=== PATIENT | female | born 1935 | race Asian ===

== ENCOUNTER 2016-11-22 15:43 | Emergency (ER) | END 2016-11-22 20:02 | disposition left against medical advice (07) | DX: Z53.21 Procedure and treatment not carried out due to patient leaving prior to being seen by health care provider (principal) ==

== ENCOUNTER 2018-05-30 09:33 | Emergency (ER) | END 2018-05-30 11:57 | disposition home or self-care (01) ==

== ENCOUNTER 2018-10-28 08:20 | Emergency (ER) | payer MEDICARE, OTHER ==
[~2018-10-28] VITALS: Ht 160 cm; Wt 60.0 kg
[~2018-10-28 08:20] MED LIST: ALEN70TA5 PO; CELE200C PO; CYCL10TA7 PO; DICY10CA40 PO; ESOM40CA PO; GLIP1TAB32 PO; LOSA100T15 PO; NAPR-985 PO
[2018-10-28 08:31] VITALS: Ht 160 cm; Wt 60.0 kg
[2018-10-28] MEDS ORDERED: SODIUM CHLORIDE 0.9% 1L BAG IV* STA (08:37)
[2018-10-28] MEDS ORDERED: ALEN70TA5 PO (09:35)
[2018-10-28] MEDS ORDERED: DICY10CA40 PO (09:36)
[2018-10-28] MEDS ORDERED: LOSA100T15 PO (09:37)
[2018-10-28] MEDS ORDERED: GLIP1TAB6 PO (09:37)
[2018-10-28] MEDS ORDERED: ATOR10TA65 PO (09:37)
[2018-10-28] MEDS ORDERED: LEVO5TAB PO (09:38)
[2018-10-28] MEDS ORDERED: BACL10TA PO (09:38)
[2018-10-28] MEDS ORDERED: OXYB5TAB PO (09:39)
[2018-10-28] MEDS ORDERED: PREG50CA PO (09:40)
[2018-10-28] MEDS ORDERED: MELO15TA30 PO (09:40)
--- NOTE | 2018-10-28 11:00 | ERD ---
ER Documentation Chief Complaint Chief Complaint fever on and off for 3 days feeling weak HPI 83-year-old female presents to the emergency department by paramedics for evaluation of generalized weakness. Patient is Syriac speaking and initially seen with a rcp. However, even with translation service, she seems to have an underlying dementia with a tangential thought process and provides very limited history. Later in the emergency department course, history is available from the daughter. Brief history from the patient and special education assistant was at the patient was being evaluated for generalized weakness. No known focal weakness or numbness. There is a questionable history of a fever. There were no other details regarding cough or shortness of breath, chest pain or abdominal pain or any other specific complaints. I have reviewed the special education assistant pre-hospital care. Pre-hospital vital signs were reviewed. Pre-hospital diagnostic tests were reviewed. Upon arrival later in the emergency department course, the daughter tells me the patient had foot surgery and the patient felt as if the foot surgery was "getting into her bloodstream." She had no other specific complaints. ROS All systems reviewed and are negative except as per history of present illness. Medications Home Meds Reported Medications Pregabalin* (Lyrica*) 50 Mg Capsule, 50 MG PO DAILY, CAP 10/28/18 Meloxicam* (Mobic*) 15 Mg Tablet, 15 MG PO DAILY, #30 TAB 10/28/18 Oxybutynin Chloride (Oxybutynin Chloride ER) 5 Mg Tab.er.24, 5 MG PO, TAB 10/28/18 Levocetirizine Dihydrochloride (LEVOCETIRIZINE DIHYDROCHLORIDE) 5 Mg Tablet, 5 MG PO DAILY, #30 TAB 10/28/18 Baclofen* (Baclofen*) 10 Mg Tablet, 10 MG PO DAILY, TAB 10/28/18 Atorvastatin Calcium (Atorvastatin Calcium) 10 Mg Tablet, 10 MG PO QHS, #30 TAB 10/28/18 Losartan Potassium* (Losartan Potassium*) 100 Mg Tablet, 100 MG PO DAILY, TAB 10/28/18 Glipizide/Metformin HCl (Glipizide-Metformin 5-500 mg) 1 Each Tablet, 1 EACH PO BID, TAB 10/28/18 Dicyclomine HCl (Dicyclomine HCl) 10 Mg Capsule, 10 MG PO TID PRN for DIARRHEA 10/28/18 Alendronate Sodium* (Fosamax*) 70 Mg Tablet, 70 MG PO Q7D, #4 TAB 10/28/18 Discontinued Reported Medications Losartan Potassium* (Losartan Potassium*) 100 Mg Tablet, 100 MG PO BID, TAB 05/10/16 Dicyclomine HCl (Dicyclomine HCl) 10 Mg Capsule, 10 MG PO TID, CAP 05/10/16 Celecoxib* (Celebrex*) 200 Mg Capsule, 200 MG PO DAILY, CAP 05/10/16 Esomeprazole Mag Trihydrate (Nexium) 40 Mg Capsule.dr, 40 MG PO AC BREAKFAST, #30 CAP 05/10/16 Alendronate Sodium* (Fosamax*) 70 Mg Tablet, 70 MG PO Q7D, TAB 11/30/14 Glipizide-Metformin (Glipizide-Metformin) 5-500 Tab, 1 TAB PO BID, TAB 11/30/14 Discontinued Scripts Naproxen* (Naprosyn*) 500 Mg Tablet, 500 MG PO BID PRN for PAIN AND/OR INFLAMMATION, #30 TAB Prov:LUIS ALFREDO COLIN MD 05/10/16 Cyclobenzaprine Hcl* (Cyclobenzaprine Hcl*) 10 Mg Tablet, 10 MG PO TID, #15 TAB Prov:LUIS ALFREDO COLIN MD 05/10/16 Allergies Allergies: Coded Allergies: No Known Drug Allergy (Verified Allergy, Mild, 10/28/18) PMhx/Soc History of Surgery: Yes (knee surgery) Anesthesia Reaction: No Hx Neurological Disorder: No Hx Respiratory Disorders: No Hx Cardiac Disorders: Yes (HTN; diabetes mellitus) Hx Psychiatric Problems: No Hx Miscellaneous Medical Probl: Yes (DM - taking Metformin) Hx Alcohol Use: No Hx Substance Use: No Hx Tobacco Use: No Smoking Status: Never smoker FmHx Noncontributory for chief complaint Physical Exam Vitals Vital Signs Date Temp Pulse Resp B/P (MAP) Pulse Ox O2 O2 Flow FiO2 Time Delivery Rate 10/28/18 65 19 137/60 100 Room Air 10:30 (85) 10/28/18 Nasal 2 08:44 Cannula 10/28/18 98.8 63 18 152/66 98 08:31 (94) Physical Exam GENERAL: Frail, elderly female in no acute distress HEENT: Pupils equal, round, and reactive to light. EOMI. There is no scleral icterus. NECK: C-spine is soft and supple, there is no meningismus. There is no cervical lymphadenopathy. LUNGS: Clear to auscultation bilaterally. There are no rales, wheezes or rhonchi. HEART: Regular rate and rhythm, no murmurs, clicks, rubs or gallops. ABDOMEN: Soft, non-tender, non-distended. There are bowel sounds in all four quadrants. No rebound or guarding. EXTREMITIES: There is no peripheral cyanosis or edema. No focal swelling or erythema. NEURO: The patient moves all four extremities with 5/5 strength. Cranial nerves II - XII are intact. Normal gait. Alert and oriented, underlying dementia appreciated SKIN: There is no apparent rash or petechiae. HEME/LYMPHATIC: There is no evidence of excessive bruising or lymphedema. PSYCHIATRIC: The patient does not appear anxious or depressed. Result Diagram: 10/28/18 0848 10/28/18 0848 Results 24 hrs Laboratory Tests Test 10/28/18 08:48 10/28/18 09:01 10/28/18 09:23 White Blood Count 5.9 10^3/ul Red Blood Count 4.07 10^6/ul Hemoglobin 12.5 g/dl Hematocrit 37.4 % Mean Corpuscular Volume 91.9 fl Mean Corpuscular Hemoglobin 30.7 pg Mean Corpuscular 33.4 g/dl Hemoglobin Concent Red Cell Distribution Width 12.4 % Platelet Count 244 10^3/UL Mean Platelet Volume 9.8 fl Immature Granulocytes % 0.300 % Neutrophils % 73.0 % Lymphocytes % 17.9 % Monocytes % 6.3 % Eosinophils % 2.2 % Basophils % 0.3 % Nucleated Red Blood Cells % 0.0 /100WBC Immature Granulocytes # 0.020 10^3/ul Neutrophils # 4.3 10^3/ul Lymphocytes # 1.1 10^3/ul Monocytes # 0.4 10^3/ul Eosinophils # 0.1 10^3/ul Basophils # 0.0 10^3/ul Nucleated Red Blood Cells # 0.0 10^3/ul Prothrombin Time 13.0 Sec Prothrombin Time Ratio 1.0 INR International 0.97 Normalized Ratio Activated Partial Thromboplast 31.3 Sec Time Sodium Level 140 mmol/L Potassium Level 4.8 mmol/L Chloride Level 106 mmol/L Carbon Dioxide Level 28 mmol/L Anion Gap 6 Blood Urea Nitrogen 18 mg/dl Creatinine 0.91 mg/dl Est Glomerular Filtrat mL/min Rate mL/min Glucose Level 110 mg/dl Calcium Level 9.7 mg/dl Total Bilirubin 0.1 mg/dl Direct Bilirubin 0.00 mg/dl Indirect Bilirubin 0.1 mg/dl Aspartate Amino 26 IU/L Transf (AST/SGOT) Alanine 15 IU/L Aminotransferase (ALT/SGPT) Alkaline Phosphatase 70 IU/L Troponin I < 0.012 ng/ml Total Protein 7.3 g/dl Albumin 4.0 g/dl Globulin 3.30 g/dl Albumin/Globulin Ratio 1.21 POC Venous Lactate 1.2 mmol/L Urine Color YELLOW Urine Clarity SLIGHTLY CLOUDY Urine pH 6.0 Urine Specific [place] 1.021 Urine Ketones NEGATIVE mg/dL Urine Nitrite NEGATIVE mg/dL Urine Bilirubin NEGATIVE mg/dL Urine Urobilinogen NEGATIVE mg/dL Urine Leukocyte Esterase 1+ Tang/ul Urine Microscopic RBC 1 /HPF Urine Microscopic WBC 4 /HPF Urine Squamous Epithelial Cells FEW /HPF Urine Mucus FEW /HPF Urine Hemoglobin NEGATIVE mg/dL Urine Glucose NEGATIVE mg/dL Urine Total Protein NEGATIVE mg/dl Current Medications Medications Dose Sig/Angelina Start Time Status Last (Trade) Ordered Route PRN Stop Time Admin Dose Reason Admin Sodium 1,800 ml BOLUS OVER 2 10/28/18 DC 10/28/18 Chloride HOURS STAT 08:37 09:05 (NS) IV* 10/28/18 08:38 Procedures/MDM Patient was taken to a room, seen and evaluated. Comfort measures were initiated. Diagnostic tests were ordered and reviewed. 3 LEAD RHYTHM STRIP: Normal sinus rhythm without ectopy EK lead EKG reviewed by myself: Normal Sinus Rhythm Normal [place] and intervals No ST elevation, depression, or T wave inversion Impression: Normal EKG RADIOLOGY: Reviewed with the radiologist REEVALUATION: 1100: Patient's daughter arrived at bedside and was reevaluated with the daughter. She appeared to be in her normal stable state of health. Diagnostic tests were reviewed with the daughter and arrangements were made for discharge. MEDICAL DECISION MAKIN-year-old female presents the emergency department for a generalized weakness complaint with a very difficult history. Differential diagnosis and diagnostic workup focused on infection, electrolyte concerns, ischemia. At this time, patient has no evidence of stroke or [place], no evidence of infection or electrolyte concerns. She appears to be at her functio nal baseline and seems to be appropriate for outpatient care. She is being discharged to the supportive management of her daughter. Departure Diagnosis: Primary Impression: Weakness Condition: Stable Patient Instructions: Generalized Weakness Additional Instructions: See your doctor for follow-up as discussed. Take a copy of your test results, if appropriate, to this follow-up visit. See your doctor or return here if your symptoms do not improve as expected. At any time, please return to the emergency department for any change or worsening in her symptoms. RAJANI SANTIAGO Oct 28, 2018 11:00
[2018-10-28 11:12] VITALS: BP 153/1; PULSE 68; RESP 19
== END 2018-10-28 11:13 | disposition home or self-care (01) ==
LOC: E/R 08:20
DX: R53.1 Weakness (principal); E11.9 Type 2 diabetes mellitus without complications; I10 Essential (primary) hypertension; Z79.84 Long term (current) use of oral hypoglycemic drugs
CPT/HCPCS: 36415; 71045; 80053; 81001; 83605; 84484; 85025; 85610; 85730; 87040; 87086; 93005; 99285; J7030

== ENCOUNTER 2018-11-04 10:53 | Emergency (ER) | payer MEDICARE, OTHER ==
[~2018-11-04] VITALS: Ht 157.5 cm; Wt 65.0 kg
[~2018-11-04 10:53] MED LIST changes: +ATOR10TA65 PO; +BACL10TA PO; -CELE200C PO; -CYCL10TA7 PO; -ESOM40CA PO; -GLIP1TAB32 PO; +GLIP1TAB6 PO; +LEVO5TAB PO; +MELO15TA30 PO; -NAPR-985 PO; +OXYB5TAB PO; +PREG50CA PO
[2018-11-04 10:59] VITALS: Ht 157.5 cm; Wt 65.0 kg
[2018-11-04] MEDS ORDERED: SOD CHLORIDE 0.9% 1,000 ML IV STA (12:07)
[2018-11-04] MEDS ORDERED: ONDANSETRON 4 MG INJ IV STA (12:07)
[2018-11-04] MEDS ORDERED: morphine 2 MG INJ IV STA (12:07)
--- NOTE | 2018-11-04 12:23 | ERD ---
ER Documentation Chief Complaint Chief Complaint BIB RA FOR EVAL OF GENERALIZED BODYACHE 1 WEEK HPI This is an 83-year-old Turkmen speaking female with a history of non-insulin diabetes mellitus. The patient was brought into the emergency department by her caregiver for generalized weakness and body aches for 1 week. She has had a nonproductive cough. She had no fevers or shaking or chills. She had a decrease in appetite. She complains of a bandlike headache. She has no neck pain. Her caregiver states with a Turkmen sleeve maker that this is not the worst headache of her life. She denies any abdominal pain. She has no chest pain. She has no shortness of breath at rest or exertion. She had no recent hospitalizations. ROS All systems reviewed and are negative except as per history of present illness. Medications Home Meds Reported Medications Pregabalin* (Lyrica*) 50 Mg Capsule, 50 MG PO DAILY, CAP 10/28/18 Meloxicam* (Mobic*) 15 Mg Tablet, 15 MG PO DAILY, #30 TAB 10/28/18 Oxybutynin Chloride (Oxybutynin Chloride ER) 5 Mg Tab.er.24, 5 MG PO, TAB 10/28/18 Levocetirizine Dihydrochloride (LEVOCETIRIZINE DIHYDROCHLORIDE) 5 Mg Tablet, 5 MG PO DAILY, #30 TAB 10/28/18 Baclofen* (Baclofen*) 10 Mg Tablet, 10 MG PO DAILY, TAB 10/28/18 Atorvastatin Calcium (Atorvastatin Calcium) 10 Mg Tablet, 10 MG PO QHS, #30 TAB 10/28/18 Losartan Potassium* (Losartan Potassium*) 100 Mg Tablet, 100 MG PO DAILY, TAB 10/28/18 Glipizide/Metformin HCl (Glipizide-Metformin 5-500 mg) 1 Each Tablet, 1 EACH PO BID, TAB 10/28/18 Dicyclomine HCl (Dicyclomine HCl) 10 Mg Capsule, 10 MG PO TID PRN for DIARRHEA 10/28/18 Alendronate Sodium* (Fosamax*) 70 Mg Tablet, 70 MG PO Q7D, #4 TAB 10/28/18 Discontinued Reported Medications Losartan Potassium* (Losartan Potassium*) 100 Mg Tablet, 100 MG PO BID, TAB 05/10/16 Dicyclomine HCl (Dicyclomine HCl) 10 Mg Capsule, 10 MG PO TID, CAP 05/10/16 Celecoxib* (Celebrex*) 200 Mg Capsule, 200 MG PO DAILY, CAP 05/10/16 Esomeprazole Mag Trihydrate (Nexium) 40 Mg Capsule.dr, 40 MG PO AC BREAKFAST, #30 CAP 05/10/16 Alendronate Sodium* (Fosamax*) 70 Mg Tablet, 70 MG PO Q7D, TAB 11/30/14 Glipizide-Metformin (Glipizide-Metformin) 5-500 Tab, 1 TAB PO BID, TAB 11/30/14 Discontinued Scripts Naproxen* (Naprosyn*) 500 Mg Tablet, 500 MG PO BID PRN for PAIN AND/OR INFLAMMATION, #30 TAB Prov:LUIS ALFREDO COLIN MD 05/10/16 Cyclobenzaprine Hcl* (Cyclobenzaprine Hcl*) 10 Mg Tablet, 10 MG PO TID, #15 TAB Prov:LUIS ALFREDO COLIN MD 05/10/16 Allergies Allergies: Coded Allergies: No Known Drug Allergy (Verified Allergy, Mild, 10/28/18) PMhx/Soc History of Surgery: Yes (knee surgery) Anesthesia Reaction: No Hx Neurological Disorder: No Hx Respiratory Disorders: No Hx Cardiac Disorders: Yes (HTN , HIGH CHOLESTEROL ) Hx Psychiatric Problems: No Hx Miscellaneous Medical Probl: Yes (DM ) Hx Alcohol Use: No Hx Substance Use: No Hx Tobacco Use: No Smoking Status: Never smoker Physical Exam Vitals Vital Signs Date Temp Pulse Resp B/P (MAP) Pulse Ox O2 O2 Flow FiO2 Time Delivery Rate 11/04/18 98.1 60 18 156/80 98 Room Air 14:24 (105) 11/04/18 62 18 142/72 98 Room Air 12:00 (95) 11/04/18 98.3 65 18 163/79 96 10:59 (107) Physical Exam Constitutional:Well-developed. Well-nourished. HEENT:Normocephalic. Atraumatic.Pupils were equal round reactive to light. Dry mucous membranes.No tonsillar exudates. Neck: No nuchal rigidity. No lymphadenopathy. No posterior cervical spine tenderness or step-offs. Respiratory: Not using accessory muscles of respiration.Lungs were clear to auscultation bilaterally. No rhonchi. No rales. No wheezing. Cardiovascular: Regular rate regular rhythm.No murmurs. No rubs were appreciated.S1, S2 normal. Distal pulses are palpable 2+ bilaterally. GI: Abdomen was soft. Nontender. Non Distended. No pulsatile abdominal masses or bruits. No rebound. No guarding. Bowel sounds were present and normal. Muscle skeletal: Full range of motion of both the upper and lower extremities bilaterally.Normal muscle tone.No assymetrical calf tenderness or swelling. Skin: No petechia, no purpura. No lesions on the palms or the soles of the feet. No maculopapular rash. NEURO: Patient was alert, awake, orientated x to person place but not to time.No facial droop. Gait observed and normal with no ataxia.Speech had regular rate and rhythm. No focal neurological deficits. Result Diagram: 11/04/18 1156 11/04/18 1156 Results 24 hrs Laboratory Tests Test 11/04/18 11:20 11/04/18 11:56 11/04/18 12:23 Urine Color STRAW Urine Clarity CLEAR Urine pH 7.0 Urine Specific [place] 1.005 Urine Ketones NEGATIVE mg/dL Urine Nitrite NEGATIVE mg/dL Urine Bilirubin NEGATIVE mg/dL Urine Urobilinogen NEGATIVE mg/dL Urine Leukocyte Esterase NEGATIVE Tang/ul Urine Hemoglobin NEGATIVE mg/dL Urine Glucose NEGATIVE mg/dL Urine Total Protein NEGATIVE mg/dl White Blood Count 6.8 10^3/ul Red Blood Count 4.23 10^6/ul Hemoglobin 12.7 g/dl Hematocrit 38.6 % Mean Corpuscular Volume 91.3 fl Mean Corpuscular Hemoglobin 30.0 pg Mean Corpuscular 32.9 g/dl Hemoglobin Concent Red Cell Distribution Width 12.5 % Platelet Count 327 10^3/UL Mean Platelet Volume 10.1 fl Immature Granulocytes % 0.300 % Neutrophils % 67.4 % Lymphocytes % 23.4 % Monocytes % 5.8 % Eosinophils % 2.5 % Basophils % 0.6 % Nucleated Red Blood Cells % 0.0 /100WBC Immature Granulocytes # 0.020 10^3/ul Neutrophils # 4.6 10^3/ul Lymphocytes # 1.6 10^3/ul Monocytes # 0.4 10^3/ul Eosinophils # 0.2 10^3/ul Basophils # 0.0 10^3/ul Nucleated Red Blood Cells # 0.0 10^3/ul Prothrombin Time 11.9 Sec Prothrombin Time Ratio 0.9 INR International 0.87 Normalized Ratio Activated Partial Thromboplast 31.9 Sec Time Sodium Level 140 mmol/L Potassium Level 4.4 mmol/L Chloride Level 102 mmol/L Carbon Dioxide Level 27 mmol/L Anion Gap 11 Blood Urea Nitrogen 19 mg/dl Creatinine 0.90 mg/dl Est Glomerular Filtrat mL/min Rate mL/min Glucose Level 71 mg/dl Calcium Level 9.7 mg/dl Total Bilirubin 0.0 mg/dl Direct Bilirubin 0.00 mg/dl Indirect Bilirubin 0.0 mg/dl Aspartate Amino Transf (AST/SGOT) 28 IU/L Alanine 20 IU/L Aminotransferase (ALT/SGPT) Alkaline Phosphatase 99 IU/L Troponin I < 0.012 ng/ml Total Protein 8.2 g/dl Albumin 4.4 g/dl Globulin 3.80 g/dl Albumin/Globulin Ratio 1.15 Amylase Level 71 U/L Lipase 52 U/L POC Venous Lactate 1.2 mmol/L Current Medications Medications Dose Sig/Angelina Start Time Status Last (Trade) Ordered Route PRN Stop Time Admin Dose Reason Admin Sodium 1,000 ml @ Q1H STAT 11/04/18 DC 11/04/18 Chloride 1,000 mls/hr IV 12:11/04/18 12:42 13:06 Morphine 2 mg ONCE STAT 11/04/18 DC 11/04/18 Sulfate IV 12:11/04/18 12:42 (morphine) 12:09 Ondansetron 4 mg ONCE STAT 11/04/18 DC 11/04/18 HCl (Zofran IV 12:11/04/18 12:41 Inj) 12:09 Procedures/MDM This is an 83-year-old female who presented to the emergency department with generalized weakness. The patient showed signs of mild clinical dehydration was given a liter bolus of normal saline. However the patient had no signs of sepsis. There is no leukocytosis. The patient did not have a urinary tract infection. There is no severe electrolyte abnormalities. Chest radiograph showed no infiltrates pneumothorax. 12 Lead EKG tracing ordered and reviewed by myself showed: Sinus bradycardia 59 bpm and no arrhythmia. VA interval normal. QRS duration normal. No ST segment elevation No ST segment depression. No changes consistent with acute ischemia. As obtain a CT scan of the patient's head given that she had a bandlike headache. This was reviewed by myself the radiologist there is no intracerebral hemorrhage mass-effect or midline shift. I did feel this is more likely result of a tension headache The patient had a caregiver who is with her. She was given the results of all the ancillary laboratory work and radiographic imaging. The patient did not show any neurological deficits to suggest a strokelike symptom. I did feel safe with the patient being discharged home and they will follow-up with their [facility]. She was discharged home with her caregiver. The patient was discharged home in fair condition. They were instructed to return to the emergency department at any time if there was any worsening of their condition. The patient stated they would follow up with their PCP in the next 24-48 hours to initiate a suitable medication regimen under the care of their PCP as well as to allow their PCP to monitor any drug reactions. The patient was discharged home with prescriptions after they gave informed consent to the new medication. They were also fully informed by myself on the adverse effects and adverse drug interactions in order to provide adequate safeguards to prevent possible adverse reactions to medications. Departure Diagnosis: Primary Impression: Headache Headache type: tension-type Headache chronicity pattern: unspecified pattern Intractability: not intractable Qualified Codes: G44.209 - Tension-type headache, unspecified, not intractable Additional Impression: Generalized weakness Condition: Fair LUIS ALFREDO COLIN MD Nov 04, 2018 12:22
[2018-11-04 14:24] VITALS: BP 156/80; PULSE 60; RESP 18
== END 2018-11-04 14:31 | disposition home or self-care (01) ==
LOC: E/R 10:53
DX: G44.209 Tension-type headache, unspecified, not intractable (principal); R53.1 Weakness; I10 Essential (primary) hypertension; E11.9 Type 2 diabetes mellitus without complications; Z79.84 Long term (current) use of oral hypoglycemic drugs
CPT/HCPCS: 36415; 70450; 71045; 80053; 81003; 82150; 83605; 83690; 84484; 85025; 85610; 85730; 87086; 87400; 93005; 96361; 96374; 96375; 99285; J2270; J2405; J7030

== ENCOUNTER 2019-01-08 12:58 | Emergency (ER) | payer MEDICARE, OTHER ==
[~2019-01-08] VITALS: Ht 157.5 cm; Wt 60.0 kg
[2019-01-08] MEDS ORDERED: HYDROmorphONE 2 MG/ML SYG IV STA (13:04)
[2019-01-08] MEDS ORDERED: SOD CHLORIDE 0.9% 1,000 ML IV STA (13:04)
[2019-01-08] MEDS ORDERED: ONDANSETRON 4 MG INJ IV STA (13:04)
[2019-01-08 13:12] VITALS: Ht 157.5 cm; Wt 60.0 kg
[2019-01-08] MEDS ORDERED: SOD CHLORIDE 0.9% 100 ML ONE (14:11)
[2019-01-08] MEDS ORDERED: IOHEXOL 100 ML ONE (14:11)
[2019-01-08] MEDS ORDERED: DICL100G37 TOP (14:22)
[2019-01-08] MEDS ORDERED: OMEP40CA6 PO (14:23)
[2019-01-08] MEDS ORDERED: LYR75 PO (14:23)
[2019-01-08] MEDS ORDERED: NICARDipine HCL 30 MG CAPSULE PO ONE (17:00)
[2019-01-08 17:15] VITALS: BP 165/67; PULSE 58; RESP 16
[2019-01-08] MEDS ORDERED: ONDANSETRON (ODT) 4 MG TAB ODT STA (18:16)
[2019-01-08] MEDS ORDERED: ONDA4TAB14 PO (18:18)
--- NOTE | 2019-01-09 06:20 | ERD ---
ER Documentation Chief Complaint Chief Complaint BIB RA FOR EVAL OF [place] HPI This is an 83-year-old female with a past medical history of hypertension and iru-yumigze-ogalleddb diabetes mellitus. The patient also has a history of migr aines. Patient lives alone and is able to attend her activities of daily living. The patient presented to the emergency department with a headache. It is a unilateral pulsating headache. The patient indicates that the headache has been present for roughly 2 hours. She is felt nauseous 3 episodes of nonbloody nonbilious emesis. She denies any abdominal pain. She has no chest pain. She has no shortness of breath at rest or exertion. She states she has had a history of migraines for roughly 10 years. This headache is similar nature to previous migraines and she states this is not the worst headache of her life. She denies any neck pain. She denies any photophobia. She has no phonophobia. ROS All systems reviewed and are negative except as per history of present illness. Medications Home Meds Active Scripts Ondansetron (Ondansetron Odt) 4 Mg Tab.rapdis, 4 MG PO Q6H PRN for NAUSEA AND/OR VOMITING, #10 TAB Prov:GUSTABO KWOK MD 01/08/19 Reported Medications Omeprazole* (Omeprazole*) 40 Mg Capsule.dr, 40 MG PO DAILY, #30 CAP 01/08/19 Pregabalin* (Lyrica*) 75 Mg Capsule, 75 MG PO BID, CAP 01/08/19 Diclofenac Sodium* (Voltaren* Gel) 1% -100 Gm Gel, 2 GM TOP QID PRN for PAIN, #1 TUB APPLY TO AFFECTED AREA 01/08/19 Pregabalin* (Lyrica*) 50 Mg Capsule, 50 MG PO DAILY, CAP 10/28/18 Meloxicam* (Mobic*) 15 Mg Tablet, 15 MG PO DAILY, #30 TAB 10/28/18 Oxybutynin Chloride (Oxybutynin Chloride ER) 5 Mg Tab.er.24, 5 MG PO, TAB 10/28/18 Levocetirizine Dihydrochloride (LEVOCETIRIZINE DIHYDROCHLORIDE) 5 Mg Tablet, 5 MG PO DAILY, #30 TAB 10/28/18 Baclofen* (Baclofen*) 10 Mg Tablet, 10 MG PO DAILY, TAB 10/28/18 Atorvastatin Calcium (Atorvastatin Calcium) 10 Mg Tablet, 10 MG PO QHS, #30 TAB 10/28/18 Losartan Potassium* (Losartan Potassium*) 100 Mg Tablet, 100 MG PO DAILY, TAB 10/28/18 Glipizide/Metformin HCl (Glipizide-Metformin 5-500 mg) 1 Each Tablet, 1 EACH PO BID, TAB 10/28/18 Alendronate Sodium* (Fosamax*) 70 Mg Tablet, 70 MG PO Q7D, #4 TAB 10/28/18 Discontinued Reported Medications Dicyclomine HCl (Dicyclomine HCl) 10 Mg Capsule, 10 MG PO TID PRN for DIARRHEA 10/28/18 Allergies Allergies: Coded Allergies: No Known Drug Allergy (Verified Allergy, Mild, 01/08/19) PMhx/Soc History of Surgery: Yes (knee surgery) Anesthesia Reaction: No Hx Neurological Disorder: No Hx Respiratory Disorders: No Hx Cardiac Disorders: Yes (HTN , HIGH CHOLESTEROL ) Hx Psychiatric Problems: No Hx Miscellaneous Medical Probl: Yes (DM ) Hx Alcohol Use: No Hx Substance Use: No Hx Tobacco Use: No Smoking Status: Never smoker Physical Exam Vitals Vital Signs Date Temp Pulse Resp B/P (MAP) Pulse Ox O2 O2 Flow FiO2 Time Delivery Rate 01/08/19 97.2 58 16 165/67 100 Room Air 17:15 (99) 01/08/19 97.2 62 16 181/69 100 Room Air 15:00 (106) 01/08/19 96.7 78 16 180/70 99 13:12 (106) Physical Exam Constitutional:Well-developed. Well-nourished. Patient sitting upright in stretcher with her eyes closed. HEENT:Normocephalic. Atraumatic.Pupils were equal round reactive to light. Moist mucous membranes.No tonsillar exudates. Funduscopy exam shows sharp optic disks and venous pulsations are present. Neck: No nuchal rigidity. No lymphadenopathy. No posterior cervical spine tenderness or step-offs. Respiratory: Not using accessory muscles of respiration.Lungs were clear to auscultation bilaterally. No rhonchi. No rales. No wheezing. Cardiovascular: Regular rate regular rhythm.No murmurs. No rubs were appreciated.S1, S2 normal. Distal pulses are palpable 2+ bilaterally. GI: Abdomen was soft. Nontender. Non Distended. No pulsatile abdominal masses or bruits. No rebound. No guarding. Bowel sounds were present and normal. Muscle skeletal: Full range of motion of both the upper and lower extremities bilaterally.Normal muscle tone.No assymetrical calf tenderness or swelling. Skin: No petechia, no purpura. No lesions on the palms or the soles of the feet. No maculopapular rash. NEURO: Patient was alert, awake, orientated x3.No facial droop. Gait observed and normal with no ataxia.Speech had regular rate and rhythm. No focal neurological deficits. Result Diagram: 01/08/19 1326 01/08/19 1326 Results 24 hrs Laboratory Tests Test 01/08/19 13:26 White Blood Count 5.2 10^3/ul Red Blood Count 4.11 10^6/ul Hemoglobin 12.3 g/dl Hematocrit 37.6 % Mean Corpuscular Volume 91.5 fl Mean Corpuscular Hemoglobin 29.9 pg Mean Corpuscular Hemoglobin Concent 32.7 g/dl Red Cell Distribution Width 13.4 % Platelet Count 265 10^3/UL Mean Platelet Volume 9.7 fl Immature Granulocytes % 0.200 % Neutrophils % 73.9 % Lymphocytes % 19.8 % Monocytes % 4.2 % Eosinophils % 1.3 % Basophils % 0.6 % Nucleated Red Blood Cells % 0.0 /100WBC Immature Granulocytes # 0.010 10^3/ul Neutrophils # 3.8 10^3/ul Lymphocytes # 1.0 10^3/ul Monocytes # 0.2 10^3/ul Eosinophils # 0.1 10^3/ul Basophils # 0.0 10^3/ul Nucleated Red Blood Cells # 0.0 10^3/ul Prothrombin Time 12.7 Sec Prothrombin Time Ratio 1.0 INR International Normalized Ratio 0.94 Activated Partial Thromboplast Time 31.1 Sec Sodium Level 141 mmol/L Potassium Level 4.3 mmol/L Chloride Level 108 mmol/L Carbon Dioxide Level 22 mmol/L Anion Gap 11 Blood Urea Nitrogen 15 mg/dl Creatinine 0.70 mg/dl Est Glomerular Filtrat Rate mL/min mL/min Glucose Level 126 mg/dl Calcium Level 9.1 mg/dl Total Bilirubin 0.3 mg/dl Direct Bilirubin 0.00 mg/dl Indirect Bilirubin 0.3 mg/dl Aspartate Amino Transf (AST/SGOT) 23 IU/L Alanine Aminotransferase (ALT/SGPT) 19 IU/L Alkaline Phosphatase 92 IU/L Total Protein 7.6 g/dl Albumin 4.0 g/dl Globulin 3.60 g/dl Albumin/Globulin Ratio 1.11 Current Medications Medications Dose Sig/Angelina Start Time Status Last (Trade) Ordered Route PRN Stop Time Admin Dose Reason Admin Sodium 1,000 ml @ Q1H STAT 01/08/19 DC 01/08/19 Chloride 1,000 mls/hr IV 13:04 01/08/19 13:40 14:03 Ondansetron 4 mg ONCE STAT 01/08/19 DC 01/08/19 HCl (Zofran IV 13:04 01/08/19 13:40 Inj) 13:09 1 mg ONCE STAT 01/08/19 DC 01/08/19 Hydromorphone IV 13:04 01/08/19 13:40 HCl 13:09 (Dilaudid) IV Flush 10 ml STK-MED 01/08/19 DC 01/08/19 (NS 10 ml) ONCE .ROUTE 14:11 01/08/19 14:51 14:12 Sodium 100 ml @ ud STK-MED 01/08/19 DC 01/08/19 Chloride ONCE .ROUTE 14:01/08/19 14:51 14:12 Iohexol 100 ml @ ud STK-MED 01/08/19 DC 01/08/19 ONCE .ROUTE 14:11 01/08/19 14:51 14:12 Clonidine 0.1 mg ONCE ONCE 01/08/19 DC 01/08/19 (Catapres) PO 15:30 01/08/19 15:24 15:31 Nicardipine 30 mg ONCE ONCE 01/08/19 DC 01/08/19 HCl PO 17:00 01/08/19 16:55 (Cardene) 17:01 Ondansetron 4 mg ONCE STAT 01/08/19 DC HCl (Zofran ODT 18:16 01/08/19 Odt) 18:19 Procedures/MDM The patient presented to the emergency department with an acute single headache that presented within hours of onset my differential diagnosis included but was not limited to meningitis, SAH, intracerebral hemorrhage, hypertensive encephalopathy, cranial artery dissection, cerebral venous sinus thrombosis, traumatic, acute sinusitis. The patient has no ocular symptoms to suggest temporal neuritis, acute narrow-angle glaucoma or pituitary apoplexy. The patient did not appear to have a toxic or metabolic etiology such as fever, hypoglycemia, high-altitude disease or carbon monoxide poisoning. This was not the patients worse headache of their life. The patient had a complete neurologic and fundoscopic exam performed by myself that was normal with no focal neurological deficits or retinal hemorrhage. The patient stated this headache was not severe or distinct from other headaches and the history with the physical exam findings did not likely suggest SAH. Therefore, I did not feel it was clinically necessary to perform a lumbar puncture and CSF analysis. I did obtain a CT scan the patient said there is no intracerebral hemorrhage mass-effect or midline shift. I obtained a 12-lead EKG tracing there is no evidence of atypical myocardial infarction. 12 Lead EKG tracing ordered and reviewed by myself showed: Sinus bradycardia 57 bpm and no arrhythmia. [place] interval normal. QRS duration normal. No ST segment elevation No ST segment depression. No changes consistent with acute ischemia. Observation Note: Time: 4 hours Family Hx: No Hypertension Evaluation: Multiple exams showed improving symptoms and no evidence of worsening of her symptoms. Her daughter was at bedside. The patient still continued to have a headache despite receiving analgesic medication. The pat ient was hypertensive. In order to rule out endorgan damage I did feel is necessary to obtain a CTA of the patient's head. There is no subarachnoid hemorrhage. No vascular malformation. The patient received clonidine with improvement of her blood pressure. The patient was discharged home in fair condition. They were instructed to return to the emergency department at any time if there was any worsening of their condition. The patient stated they would follow up with their PCP in the next 24-48 hours to initiate a suitable medication regimen under the care of their PCP as well as to allow their PCP to monitor any drug reactions. The patient was discharged home with prescriptions after they gave informed consent to the new medication. They were also fully informed by myself on the adverse effects and adverse drug interactions in order to provide adequate safeguards to prevent possible adverse reactions to medications. Departure Diagnosis: Primary Impression: Nausea and vomiting Vomiting type: unspecified Vomiting Intractability: non-intractable Qualified Codes: R11.2 - Nausea with vomiting, unspecified Additional Impression: Migraine Migraine type: without aura Status migrainosus presence: without status migrainosus Intractability: not intractable Qualified Codes: G43.009 - Migraine without aura, not intractable, without status migrainosus Condition: Fair Patient Instructions: High Blood Pressure (Hypertension), Headache, Migraine (Classical) Referrals: MARIETTA ETIENNE MD (PCP) LUIS ALFREDO COLIN MD January 09, 2019 06:16
== END 2019-01-08 17:15 | disposition home or self-care (01) ==
LOC: E/R 12:58
DX: G43.909 Migraine, unspecified, not intractable, without status migrainosus (principal); I10 Essential (primary) hypertension; E11.9 Type 2 diabetes mellitus without complications; Z79.84 Long term (current) use of oral hypoglycemic drugs
CPT/HCPCS: 70450; 70496; 80053; 85025; 85610; 85730; 93005; 96374; 96375; 99285; J1170; J2405; J7030; Q9967

== ENCOUNTER 2019-03-15 17:03 | Emergency (ER) | payer MEDICARE, OTHER ==
[~2019-03-15] VITALS: Ht 160 cm; Wt 59.1 kg
[~2019-03-15 17:03] MED LIST changes: +DICL100G37 TOP; -DICY10CA40 PO; +LYR75 PO; +OMEP40CA6 PO; +ONDA4TAB14 PO
[2019-03-15 17:10] VITALS: Ht 160 cm; Wt 59.1 kg
[2019-03-15] MEDS ORDERED: SOD CHLORIDE 0.9% 1,000 ML IV STA (17:20)
[2019-03-15] MEDS ORDERED: ONDANSETRON 4 MG INJ IV STA (19:08)
[2019-03-15] MEDS ORDERED: morphine 2 MG INJ IV STA (19:08)
--- NOTE | 2019-03-15 19:16 | ERD ---
ER Documentation Chief Complaint Chief Complaint R39 generalize body pain & weakness italian speaking HPI This is an 83-year-old female with a past medical history of hypertension and xbi-sjcnzta-pmanifdta diabetes mellitus. The patient also has a history of migraines. Patient lives alone and is able to attend her activities of daily living. The patient presented to the emergency department by EMS after her granddaughter indicated that she had been complaining of generalized body pains and weakness for the past several days. The patient is Vietnamese speaking and with a canvas cutter machine indicate the most of her pain was in the left lower quadrant. The pain did not radiate to the back. She stated the pain was 6 out of 10 in inten sity. She had mild frequency with no urgency or dysuria. She denied any gross hematuria. She states she is experience nausea and had one episode of nonbloody nonbilious emesis. She denies any diarrhea or constipation. No fevers no shaking no chills ROS All systems reviewed and are negative except as per history of present illness. Medications Home Meds Reported Medications Omeprazole* (Omeprazole*) 40 Mg Capsule.dr, 40 MG PO DAILY, #30 CAP 01/08/19 Pregabalin* (Lyrica*) 75 Mg Capsule, 75 MG PO BID, CAP 01/08/19 Diclofenac Sodium* (Voltaren* Gel) 1% -100 Gm Gel, 2 GM TOP QID PRN for PAIN, #1 TUB APPLY TO AFFECTED AREA 01/08/19 Meloxicam* (Mobic*) 15 Mg Tablet, 15 MG PO DAILY, #30 TAB 10/28/18 Oxybutynin Chloride (Oxybutynin Chloride ER) 5 Mg Tab.er.24, 5 MG PO, TAB 10/28/18 Levocetirizine Dihydrochloride (LEVOCETIRIZINE DIHYDROCHLORIDE) 5 Mg Tablet, 5 MG PO DAILY, #30 TAB 10/28/18 Baclofen* (Baclofen*) 10 Mg Tablet, 10 MG PO DAILY, TAB 10/28/18 Atorvastatin Calcium (Atorvastatin Calcium) 10 Mg Tablet, 10 MG PO QHS, #30 TAB 10/28/18 Losartan Potassium* (Losartan Potassium*) 100 Mg Tablet, 100 MG PO DAILY, TAB 10/28/18 Glipizide/Metformin HCl (Glipizide-Metformin 5-500 mg) 1 Each Tablet, 1 EACH PO BID, TAB 10/28/18 Alendronate Sodium* (Fosamax*) 70 Mg Tablet, 70 MG PO Q7D, #4 TAB 10/28/18 Discontinued Reported Medications Pregabalin* (Lyrica*) 50 Mg Capsule, 50 MG PO DAILY, CAP 10/28/18 Discontinued Scripts Ondansetron (Ondansetron Odt) 4 Mg Tab.rapdis, 4 MG PO Q6H PRN for NAUSEA AND/OR VOMITING, #10 TAB Prov:GUSTABO KWOK MD 01/08/19 Allergies Allergies: Coded Allergies: No Known Drug Allergy (Verified Allergy, Mild, 03/15/19) PMhx/Soc History of Surgery: Yes (knee surgery) Anesthesia Reaction: No Hx Neurological Disorder: No Hx Respiratory Disorders: No Hx Cardiac Disorders: Yes (HTN , HIGH CHOLESTEROL ) Hx Psychiatric Problems: No Hx Miscellaneous Medical Probl: Yes (DM ) Hx Alcohol Use: No Hx Substance Use: No Hx Tobacco Use: No Smoking Status: Never smoker Physical Exam Vitals Vital Signs Date Temp Pulse Resp B/P (MAP) Pulse Ox O2 O2 Flow FiO2 Time Delivery Rate 03/15/19 97.6 63 18 171/73 100 17:10 (105) Physical Exam Constitutional:Well-developed. Well-nourished. HEENT:Normocephalic. Atraumatic.Pupils were equal round reactive to light. Moist mucous membranes.No tonsillar exudates. Neck: No nuchal rigidity. No lymphadenopathy. No posterior cervical spine tenderness or step-offs. Respiratory: Not using accessory muscles of respiration.Lungs were clear to auscultation bilaterally. No rhonchi. No rales. No wheezing. Cardiovascular: Regular rate regular rhythm.No murmurs. No rubs were appreciated.S1, S2 normal. Distal pulses are palpable 2+ bilaterally. GI: Abdomen was soft. Suprapubic tenderness and tenderness in the left lower quadrant. No pulsatile abdominal masses or bruits. No rebound. No guarding. Bowel sounds were present and normal. Muscle skeletal: Full range of motion of both the upper and lower extremities bilaterally.Normal muscle tone.No assymetrical calf tenderness or swelling. Skin: No petechia, no purpura. No lesions on the palms or the soles of the feet. No maculopapular rash. NEURO: Patient was alert, awake, orientated x3.No facial droop. Gait observed and normal with no ataxia.Speech had regular rate and rhythm. No focal neurological deficits. Result Diagram: 03/15/19 1722 03/15/19 1722 Results 24 hrs Laboratory Tests Test 03/15/19 17:22 White Blood Count 7.3 10^3/ul Red Blood Count 4.26 10^6/ul Hemoglobin 12.7 g/dl Hematocrit 37.7 % Mean Corpuscular Volume 88.5 fl Mean Corpuscular Hemoglobin 29.8 pg Mean Corpuscular Hemoglobin Concent 33.7 g/dl Red Cell Distribution Width 13.3 % Platelet Count 265 10^3/UL Mean Platelet Volume 9.3 fl Immature Granulocytes % 0.100 % Neutrophils % 72.6 % Lymphocytes % 19.4 % Monocytes % 5.6 % Eosinophils % 1.9 % Basophils % 0.4 % Nucleated Red Blood Cells % 0.0 /100WBC Immature Granulocytes # 0.010 10^3/ul Neutrophils # 5.3 10^3/ul Lymphocytes # 1.4 10^3/ul Monocytes # 0.4 10^3/ul Eosinophils # 0.1 10^3/ul Basophils # 0.0 10^3/ul Nucleated Red Blood Cells # 0.0 10^3/ul Prothrombin Time 11.9 Sec Prothrombin Time Ratio 0.9 INR International Normalized Ratio 0.87 Activated Partial Thromboplast Time 30.7 Sec Sodium Level 138 mmol/L Potassium Level 5.0 mmol/L Chloride Level 104 mmol/L Carbon Dioxide Level 26 mmol/L Anion Gap 8 Blood Urea Nitrogen 32 mg/dl Creatinine 0.84 mg/dl Est Glomerular Filtrat Rate mL/min mL/min Glucose Level 125 mg/dl Calcium Level 9.4 mg/dl Total Bilirubin 0.2 mg/dl Direct Bilirubin 0.00 mg/dl Indirect Bilirubin 0.2 mg/dl Aspartate Amino Transf (AST/SGOT) 27 IU/L Alanine Aminotransferase (ALT/SGPT) 21 IU/L Alkaline Phosphatase 61 IU/L Troponin I < 0.012 ng/ml Total Protein 7.5 g/dl Albumin 4.0 g/dl Globulin 3.50 g/dl Albumin/Globulin Ratio 1.14 Amylase Level 86 U/L Lipase 59 U/L Current Medications Medications Dose Sig/Angelina Start Time Status Last (Trade) Ordered Route PRN Stop Time Admin Dose Reason Admin Sodium 1,000 ml @ Q1H STAT 03/15/19 DC 03/15/19 Chloride 1,000 mls/hr IV 17:20 17:28 03/15/19 18:19 Morphine 2 mg ONCE STAT 03/15/19 UNV Sulfate IV 19:08 (morphine) 03/15/19 19:09 Ondansetron 4 mg ONCE STAT 03/15/19 UNV HCl (Zofran IV 19:08 Inj) 03/15/19 19:09 Procedures/MDM This patient presented to the emergency department with abdominal pain and was seen and evaluated by myself. My differential diagnosis included but was not limited to abdominal aortic aneurysm, appendicitis, pancreatitis, perforated peptic ulcer, perforated viscus, Boerhaaves syndrome or visceral pain such as diverticulitis, DKA, esophagitis, hepatitis or bowel obstruction. The patient was placed on a youth nutritional monitor, continuous pulse oximetry, and IV access was established by nursing staff. Patient received intravenous morphine and Zofran. The patient had no leukocytosis. There is no severe electrolyte abnormalities I obtained a 12-lead EKG tracing to rule out for atypical myocardial fraction. 12 Lead EKG tracing ordered and reviewed by myself showed: Sinus bradycardia 56 bpm and no arrhythmia. [place] interval normal. QRS duration normal. No ST segment elevation No ST segment depression. No changes consistent with acute ischemia. There is no evidence of urinary tract infection. I obtained a CT scan of the abdomen and there is no evidence of a mass or div erticulitis. Indicates the patient I did not have an exact etiology into her symptoms but I did feel that she was safe to be discharged home. The patient is able to take care of herself and attend her activities of daily living. Therefore she felt comfortable being discharged home. She was given antiemetics. The patient was discharged home in fair condition. They were instructed to return to the emergency department at any time if there was any worsening of their condition. The patient stated they would follow up with their PCP in the next 24-48 hours to initiate a suitable medication regimen under the care of their PCP as well as to allow their PCP to monitor any drug reactions. The patient was discharged home with prescriptions after they gave informed consent to the new medication. They were also fully informed by myself on the adverse effects and adverse drug interactions in order to provide adequate safeguards to prevent possible adverse reactions to medications. Departure Diagnosis: Primary Impression: Abdominal pain Abdominal location: left lower quadrant Qualified Codes: R10.32 - Left lower quadrant pain Additional Impression: Myalgia Condition: LUIS ALFREDO Arroyo MD Mar 15, 2019 19:16
[2019-03-15] MEDS ORDERED: ONDA4TAB14 PO (19:17)
[2019-03-15] MEDS ORDERED: IOHEXOL 300MG/ML 150 ML BTL ONE (19:30)
[2019-03-15] MEDS ORDERED: SOD CHLORIDE 0.9% 100 ML ONE (19:30)
[2019-03-15] MEDS ORDERED: ACETAMINOPHEN 325 MG TAB PO ONE (22:00)
[2019-03-15] MEDS ORDERED: ACET325T33 PO (22:00)
[2019-03-15 22:11] VITALS: BP 153/65; PULSE 64; RESP 20
== END 2019-03-15 22:18 | disposition home or self-care (01) ==
LOC: E/R 17:03
DX: R10.32 Left lower quadrant pain (principal); I10 Essential (primary) hypertension; E11.9 Type 2 diabetes mellitus without complications; M79.18 Myalgia, other site; Z79.84 Long term (current) use of oral hypoglycemic drugs
CPT/HCPCS: 71045; 74177; 80053; 81003; 82150; 83690; 84484; 85025; 85610; 85730; 87086; 93005; 96374; 99285; J2405; J7030; Q9967

== ENCOUNTER 2019-04-25 07:28 | Emergency (ER) | payer MEDICARE, OTHER ==
[~2019-04-25] VITALS: Ht 157.5 cm; Wt 60.0 kg
[~2019-04-25 07:28] MED LIST changes: +ACET325T33 PO; +FAMO-96 PO; +LORA-441 PO; -PREG50CA PO
[2019-04-25 07:35] VITALS: Ht 157.5 cm; Wt 60.0 kg
[2019-04-25] MEDS ORDERED: SODIUM CHLORIDE 0.9% 1L BAG IV* STA (07:39)
[2019-04-25 11:30] VITALS: BP 118/65; PULSE 75; RESP 20
== END 2019-04-25 11:36 | disposition home or self-care (01) ==
LOC: E/R 07:28
DX: K29.70 Gastritis, unspecified, without bleeding (principal); I10 Essential (primary) hypertension; E11.9 Type 2 diabetes mellitus without complications; Z79.84 Long term (current) use of oral hypoglycemic drugs
CPT/HCPCS: 36415; 71045; 80053; 81003; 84484; 85025; 85610; 85730; 87040; 87086; 93005; 99285; J7030

== ENCOUNTER 2019-05-09 09:47 | Emergency (ER) | payer MEDICARE, OTHER ==
[~2019-05-09] VITALS: Ht 157.5 cm; Wt 60.0 kg
[2019-05-09 09:51] VITALS: Ht 157.5 cm; Wt 60.0 kg
[2019-05-09] MEDS ORDERED: LORAZEPAM 0.5 MG TAB PO ONE (11:00)
[2019-05-09 12:09] VITALS: BP 174/75; PULSE 67; RESP 17
== END 2019-05-09 12:14 | disposition home or self-care (01) ==
LOC: E/R 09:47
DX: K29.70 Gastritis, unspecified, without bleeding (principal); R11.2 Nausea with vomiting, unspecified; I10 Essential (primary) hypertension; E11.9 Type 2 diabetes mellitus without complications; Z79.84 Long term (current) use of oral hypoglycemic drugs
CPT/HCPCS: 36415; 80053; 81003; 83690; 84484; 85025; 93005